=== PATIENT | female | born 1960 | race Caucasian/White ===

== ENCOUNTER → 2021-02-18 | Outpatient (CLI) | payer OTHER ==
[2021-02-18 12:03] VITALS: BP 107/74; PULSE 72; RESP 16; TEMP 98
--- NOTE | 2021-02-18 12:42 | P.GSHP ---
History of Present Illness H&P Date: 02/18/21 Chief Complaint: right breast cancer Alicia is a 60 year old white had a routine screening mammogram performed on 01-20-21 this was felt to be incomplete as there was some architectural distortion in the upper outer quadrant of the right breast and an ultrasound was recommended. The ultrasound was performed on 1020 821 which revealed a 2.1 x 1.6 cm nodule felt to be most likely fibroadenoma in the right breast. Ultrasound-guided core biopsy was recommended[place] [address] pathology results revealed invasive ductal carcinoma. It is felt to be low grade, ER positive, [place] negative, HER-2/genoveva pending. The patient did not feel the lesion prior to the mammogram. She gets mammograms on a yearly basis. This was a change. The patient is not complaining of any loss masses or nodules in either breast. She is not complaining of any nipple discharge or skin changes. She is does not report any recent trauma or infection in the breast. Caffeine: 2 cups/day nicotine: none chocolate: occasional hormones: none BCP: stopped 25 years ago, she took them for 15 years Family History: father: colon brother: pancreatic cancer; at 52 Hormonal History: menarche: 17 , breast fed: yes, age at first : 27 menopause: 58 BCP: 15 years stopped 25 years ago hormones: none Surgical history: right wrist surgery form trauma bilateral cataract surgery C-sections times two Medical history: none Social History: HEENT: Negative Alcohol: Occasional Drugs: Negative - Constitutional Constitutional: Reports sweats - EENT Eyes: bilateral as per HPI Ears: deny: decreased hearing, tinnitus Ears, nose, mouth and throat: Denies headache, Denies sore throat - Breasts Breasts: bilateral: as per HPI - Cardiovascular Cardiovascular: Denies chest pain, Denies shortness of breath - Respiratory Respiratory: Denies cough, Denies 7 - Gastrointestinal Gastrointestinal: Denies abdominal pain, Denies diarrhea, Denies nausea, Denies vomiting - Genitourinary (Female) Genitourinary: Denies dysuria, Denies hematuria - Menstruation Menstruation: Reports postmenopausal - Musculoskeletal Musculoskeletal: Denies myalgias - Integumentary Comment: eczema intermittent Integumentary: Denies pruritus, Denies rash - Neurological Neurological: Denies numbness, Denies weakness - Psychiatric Psychiatric: Denies anxiety, Denies depression - Endocrine Endocrine: Denies fatigue, Denies weight change - Hematologic/Lymphatic Comment: none - Allergic/Immunologic Allergic/Immunologic: Reports as per HPI Past Medical History Past Medical History: No Reported History History of Any Multi-Drug Resistant Organisms: None Reported Past Surgical History: Section, Orthopedic Surgery Additional Past Surgical History / Comment(s): right wrist surgery december 02, 2020 due to fall. bilateral cataract surgery. right breast biopsy 02/10/21- positive Past Anesthesia/Blood Transfusion Reactions: No Reported Reaction Past Psychological History: No Psychological Hx Reported Smoking Status: Former smoker Medications and Allergies Home Medications Medication Instructions Recorded Confirmed Type No Known Home Medications 02/18/21 02/18/21 History Allergies Allergy/AdvReac Type Severity Reaction Status Date / Time No Known Allergies Allergy Verified 02/18/21 11:53 Surgical - Exam Vital Signs Temp Pulse Resp BP 98.0 F 72 16 107/74 02/18/21 11:53 02/18/21 11:53 02/18/21 11:53 02/18/21 11:53 BMI 25.1 - General well developed, well nourished, no distress - Eyes normal ocular movement - ENT no hearing loss - Neck trachea midline - Respiratory normal respiratory effort - Cardiovascular Rhythm: regular Heart Sounds: normal: S1, S2 - Abdomen Abdomen: soft - Integumentary normal turgor - Neurologic no disoriented, no combative - Musculoskeletal normal gait, normal posture - Psychiatric oriented to time, oriented to person, oriented to place, speech is normal, memory intact Breast Exam: BRA: 36C Inspection: Grade 3 ptosis bilaterally Palpation: Right breast: Multi-positional exam increased nodularity near the periareolar area extending to the upper outer quadrant approximately 2 cm in size, no other dominant masses or nodules of concern Right axilla: No adenopathy of concern left breast: Multi-positional exam fibrocystic changes no dominant masses or nodules of concern Left axilla: No adenopathy of concern Results Mammogram and ultrasound were reviewed in detail with Dr. Ivory, there is approximately a 2-2.5 cm nodular area with spiculation in the right breast in the upper outer quadrant region adjacent to this more superficial is a mass which is most likely a fibroadenoma. The breast are dense bilaterally Assessment and Plan Assessment: Impression: 1. Invasive ductal carcinoma right breast upper outer quadrant 2. Second nodular area right breast in proximity to the malignancy which may represent a fibroadenoma 3. Dense breast 4. Positive family history/brother of pancreatic cancer Plan: 1. Right breast invasive ductal carcinoma 2. Presentation of case at tumor board 3. Genetic testing 4. Consider breast MRI 5. Consider biopsy second nodule and right breast Cc: Dr. Thompson
== END | disposition home or self-care (01) ==
LOC: WWCWWP 11:27
PROVIDERS: ATTEND Surgery
DX: Z53.9 Procedure and treatment not carried out, unspecified reason (principal)

== ENCOUNTER → 2021-03-09 | Day surgery (SDC) | payer OTHER ==
[2021-03-09 09:59] VITALS: RESP 16; TEMP 97.9
[2021-03-09 10:56] VITALS: BP 124/74; PULSE 54
--- NOTE | 2021-03-09 11:17 | USB ---
EXAMINATION TYPE: US biopsy breast VAD RT DATE OF EXAM: 03/09/2021 CLINICAL HISTORY: Z85.3, Personal history of breast cancer. TECHNIQUE: Ultrasound guided vaccuum assisted core biopsy of right breast. COMPARISON: NONE FINDINGS: The ultrasound guided core biopsy procedure was explained to the patient. The risks, benefits, alternatives were discussed. An informed consent was then obtained. Timeout was performed. The patient was placed in supine positioning for imaging and for the procedure. The overlying skin was prepped with betadine and sterilely draped in usual sterile fashion. Lidocaine 1% was used as anesthetic into the skin and deeper breast tissue up to area of concern in the breast. A small skin pritesh was made with surgical scalpel. Under ultrasound guidance, a 12-gauge vacuum assisted biopsy device was used to obtain 4 core samples. A biopsy clip was left in lesion. Wing clip was utilized. Good hemostasis was obtained with direct pressure. Discharge instructions were discussed with the patient. The patient will follow up with the referring physician for results. Postprocedure mammogram: No postprocedure mammogram was performed. This circumscribed lesion is directly above the patient's known cancer remaining present following the biopsy. The patient tolerated the procedure well without any immediate complication. The patient was discharged to home in stable condition. IMPRESSION: 1. Successful ultrasound guided biopsy right breast. Recommendations: 1. Recommendations are pending pathology results. Pathology Results: Benign RIGHT BREAST, NINE O'CLOCK, ULTRASOUND GUIDED CORE BIOPSY: Breast tissue with fibrosis/scar, negative for malignancy. Recommendation Follow up mammogram of the right breast in 6 months. JOELLE
== END ==
LOC: RADUSWWP 09:47
PROVIDERS: ATTEND Surgery
DX: N60.31 Fibrosclerosis of right breast (principal)
CPT/HCPCS: 88305; 19083; A4648; J2001

== ENCOUNTER → 2021-03-18 | Outpatient (CLI) | payer OTHER ==
[2021-03-18 15:29] VITALS: BP 122/64; PULSE 65; RESP 18; TEMP 98
--- NOTE | 2021-03-18 15:37 | P.PN ---
Subjective Progress Note Date: 03/18/21 Principal diagnosis: invasive ductal cancer right breast Original Note: History of Present Illness H&P Date: 02/18/21 Chief Complaint: right breast cancer Alicia is a 60 year old white had a routine screening mammogram performed on 01-20-21 this was felt to be incomplete as there was some architectural distortion in the upper outer quadrant of the right breast and an ultrasound was recommended. The ultrasound was performed on 1020 821 which revealed a 2.1 x 1.6 cm nodule felt to be most likely fibroadenoma in the right breast. Ultrasound-guided core biopsy was recommended[place] [id number] pathology results revealed invasive ductal carcinoma. It is felt to be low grade, ER positive, [place] negative, HER-2/genoveva pending. The patient did not feel the lesion prior to the mammogram. She gets mammograms on a yearly basis. This was a change. The patient is not complaining of any loss masses or nodules in either breast. She is not complaining of any nipple discharge or skin changes. She is does not report any recent trauma or infection in the breast. Genetic testing was performed and was negative Case was presented at tumor board inferiorly was the patient was a good candidate to proceed with surgery MRI was performed MRI there was some concern that the extent of the lesion was greater than initially thought up to 5-6 cm in size Oncotype 27 I discussed the case with Dr. Ervin from medical oncology, he states that despite the size of the tumor if the patient wishes to proceed with surgery first that that would be acceptable. I have discussed this with the patient and her and both wish to proceed with surgery prior to neoadjuvant chemotherapy. They understand that the tumor potentially could shrink and have better cosmetic results and despite this they wish to proceed with the surgery. Caffeine: 2 cups/day nicotine: none chocolate: occasional hormones: none BCP: stopped 25 years ago, she took them for 15 years Family History: father: colon brother: pancreatic cancer; at 52 Hormonal History: menarche: 17 , breast fed: yes, age at first : 27 menopause: 58 BCP: 15 years stopped 25 years ago hormones: none Surgical history: right wrist surgery form trauma bilateral cataract surgery C-sections times two Medical history: none Social History: HEENT: Negative Alcohol: Occasional Drugs: Negative - Constitutional Constitutional: Reports sweats - EENT Eyes: bilateral as per HPI Ears: deny: decreased hearing, tinnitus Ears, nose, mouth and throat: Denies headache, Denies sore throat - Breasts Breasts: bilateral: as per HPI - Cardiovascular Cardiovascular: Denies chest pain, Denies shortness of breath - Respiratory Respiratory: Denies cough - Gastrointestinal Gastrointestinal: Denies abdominal pain, Denies diarrhea, Denies nausea, Denies vomiting - Genitourinary (Female) Genitourinary: Denies dysuria, Denies hematuria - Menstruation Menstruation: Reports postmenopausal - Musculoskeletal Musculoskeletal: Denies myalgias - Integumentary Comment: eczema intermittent Integumentary: Denies pruritus, Denies rash - Neurological Neurological: Denies numbness, Denies weakness - Psychiatric Psychiatric: Denies anxiety, Denies depression - Endocrine Endocrine: Denies fatigue, Denies weight change - Hematologic/Lymphatic Comment: none - Allergic/Immunologic Allergic/Immunologic: Reports as per HPI Objective - Vital Signs Vital signs: Intake & Output 03/17/21 03/18/21 03/18/21 18:59 06:59 18:59 Weight 76.204 kg - Constitutional General appearance: Present: cooperative - EENT Eyes: Present: EOMI ENT: Present: hearing grossly normal - Neck Neck: Present: normal ROM - Respiratory Respiratory: bilateral: CTA - Cardiovascular Heart sounds: normal: S1, S2 - Integumentary Integumentary: Present: normal turgor - Musculoskeletal Musculoskeletal: Present: gait normal - Psychiatric Psychiatric: Present: A&O x's 3, appropriate affect, intact judgment & insight - Additional findings Additional findings: Breast Exam; BRA: 36C Inspection: Grade 3 ptosis bilaterally Palpation: Right breast: Multiple positional exam increased nodularity near the periareolar area extending to the upper outer quadrant approximately 3 cm in size, no other dominant masses or nodules of concern Right axilla: No adenopathy of concern Left breast: Multiple positional exam no dominant masses or nodules of concern Left axilla: No adenopathy of concern Assessment and Plan Assessment: Impression: 1. Invasive ductal carcinoma right breast upper outer quadrant on recent MRI this is approximately 6 cm in size 2. Second nodular area right breast in proximity to the malignancy was biopsied on and was benign fibrosis/scar negative for malignancy 3. I discussed the case with Dr. Ervin and he feels comfortable that the patient can proceed with surgery 4. I discussed this with the patient and her have given them the option of neoadjuvant chemotherapy as her Oncotype is 27 however the bronchus tumor to be removed, both discussed with them mastectomy versus a lumpectomy although they know the breast will be deformed and she wishes to have the lumpectomy attempted Plan: 1. Right breast needle localization lumpectomy, possible [id number] tissue transfer, possible mastopexy incision, sentinel node biopsy, sentinel node injection, possible axillary node dissection Risks and benefits of the procedure discussed with the patient and her . Risks include but are not limited to bleeding, infection, reaction to the anesthetic. With the axillary node sampling risk of lymphedema or decreased sensation to the upper arm was discussed as well as injury to the thoracodorsal and long thoracic nerves. They understand and wish to proceed. They also understand that neoadjuvant chemotherapy could shrink the tumor and give better cosmetic result however at this time they wish the tumor to be removed. CC: Dr. Thompson
== END | disposition home or self-care (01) ==
LOC: WWCWWP 14:31
PROVIDERS: ATTEND Surgery
DX: Z53.9 Procedure and treatment not carried out, unspecified reason (principal)

== ENCOUNTER 2021-03-22 07:49 | Observation (INO) | payer OTHER ==
[2021-03-17 14:56] VITALS: BMI 25.5
[~2021-03-22 07:49] MED LIST: DEXAMETHASONE SOD PHOSPHATE 4 MG/ML 1 ML VIAL IV ONE; HEPARIN SODIUM,PORCINE/PF 5,000 UNIT/0.5 ML SYRINGE SQ PRN; HYDROmorphone 0.5 MG/0.5 ML SYRINGE IVP PRN; ONDANSETRON 4 MG/2 ML VIAL IVP ONE; Pre Op ABX Message 1 EACH MISC MISCELLANE ONE
[2021-03-22] MEDS: LACTATED RINGERS 1,000 ML IV SCH ×2 (08:24→20:00)
[2021-03-22] MEDS ORDERED: LIDOCAINE 1% INJ 10MG/ML (20 ML MDV) SQ ONE ×3 (09:20→11:12)
--- NOTE | 2021-03-22 10:15 | NM ---
EXAMINATION TYPE: NM sentinel node injection DATE OF EXAM: 03/22/2021 COMPARISON: 01/20/2021 HISTORY: 60-year-old female biopsy-proven right breast cancer. TECHNIQUE AND FINDINGS: The procedure of sentinel lymph node injection was explained to the patient. The benefits, alternatives, and risks were discussed. An informed consent was then obtained. Overlying skin is cleaned with sterile alcohol. Following this, 493 uCi Tc99m Tilmanocept was inject ed in the upper outer aspect of the right nipple intradermally. The patient tolerated the procedure well without any immediate complication. The patient was kept in the radiology department for short stay after the procedure and then taken to surgery for surgical p rocedure what is presumed intraoperative gamma probe will be used for sentinel lymph node detection. IMPRESSION: Right breast radiotracer injection for sentinel node localization as above.
[2021-03-22] MEDS ORDERED: PROPOFOL 10 MG/ML 20 ML VIAL IV ONE (10:34)
[2021-03-22] MEDS ORDERED: KETAMINE 10 MG/ML 20 ML VIAL ONE (10:34)
[2021-03-22] MEDS ORDERED: ePHEDrine 50 MG/ML 1 ML AMP ONE (10:34)
[2021-03-22] MEDS ORDERED: fentaNYL (PF) 50 MCG/ML 2 ML AMP ONE (10:34)
[2021-03-22] MEDS ORDERED: MIDAZOLAM 2 MG/2 ML VIAL ONE (10:34)
[2021-03-22] MEDS ORDERED: SUCCINYLCHOLINE CHLORIDE 100 MG/5 ML SYR IV ONE (10:34)
[2021-03-22] MEDS ORDERED: LIDOCAINE 1% INJ 10MG/ML (20 ML MDV) ONE (10:34)
[2021-03-22] MEDS ORDERED: PHENYLEPHRINE-0.9% NACL SYG 1,000 MCG/10 ML SYRINGE ONE (10:34)
[2021-03-22] MEDS ORDERED: SODIUM CHLORIDE 0.9% 100 ML with ceFAZolin 2,000 MG IV ONE ×2 (10:55)
[2021-03-22] MEDS ORDERED: LACTATED RINGERS 1,000 ML IV ONE ×3 (12:12→15:59)
--- NOTE | 2021-03-22 13:59 | P.OP ---
Date of Procedure: 03/22/21 Preoperative Diagnosis: Right breast invasive ductal carcinoma Postoperative Diagnosis: same Procedure(s) Performed: right sentinel node biopsy, axillary node dissection, right breast needle localization lumpectomy, donut mastopexy, bronchoplasty tissue transfer 32 cm Anesthesia: FRANCIEA Surgeon: Ce Villatoro Estimated Blood Loss (ml): 25 Pathology: other (Fentanyl, axillary node contents, breast tissue) Condition: stable Disposition: same day Indications for Procedure: Invasive ductal carcinoma right breast Operative Findings: Dense fibroglandular tissue/suspicious axillary lymph nodes Description of Procedure: Alicia is a 60-year-old white female diagnosed with right breast invasive ductal carcinoma. The lesion was T3 N0 M0 ER positive MN low positive HER-2 negative. The case was discussed with Dr. Ervin and although the lesion was felt to be at least 6 cm in size the patient wished for surgery prior to any guerrero-adjuvant treatment. Dr. Ervin was aware and in agreement. The patient was given the option of an attempt at lumpectomy versus mastectomy and she wished to have an attempt at lumpectomy realizing that if margins are positive most likely proceed to a mastectomy. The patient was first seen in the radiology suite for injection of radioactive substance around the nipple areolar complex was performed as well as needle localization. She is brought to the preoperative area for the skin was marked. Markings were placed for a donut mastopexy incision. The patient was brought to the operating room and following induction of anesthesia. This area was interrogated using the neoprobe. Radioactivity was noted to be present in the axilla. The right breast and axilla were prepped and draped in a sterile fashion. The axilla was approached initially. An incision was made over the area of greatest radioactivity and dissection was performed down and a lymph node was recovered. A 10 second count on the lymph node was 6568. Palpation revealed several other suspicious nodes and a second node was removed and the 10 second count was 1102. A third lymph node was removed and the 10 second count was approximately 900. And a fourth lymph node was removed and the 10 second count was 805. Following this the background count was minimal. Secondary to the firmness of the lymph nodes. The axillary contents were somewhat suspicious and a completion dissection was performed. The tissues were followed from medial superiorly to the level of the axillary vein. Tissues were then swept inferiorly being careful to identify and preserve the thoracodorsal and long thoracic nerves. Several intercostal brachial vessels were ligated and divided using the LigaSure. Following thisfurther palpable adenopathy of concern was identified. The wound was well irrigated. A ONDINA drain was placed. The deep tissues were closed using 3-0 Vicryl suture. The skin was closed using a Vicryl suture followed by 4-0 Monocryl. The area of the breast was then approached. Markings had been placed in the pre-operative area for a donut mastopexy. The skin was de-epithelialized. The breast parenchyma was entered in the lateral aspect of the incision. This was dissected to the subcutaneous plane between the cutaneous tissue and breast tissue to the area of the marking wire. Dissection was performed well beyond the area of palpable tumor both inferiorly and laterally. Dissection was also performed superiorly and medially. Dissection was performed down to the pectoralis muscle. The specimen was removed. Following removal of the specimen it was painted for orientation. The specimen was sent to x-ray and it was concerning that the inferior medial margin may be positive. Therefore additional tissue was obtained. Additional tissue was obtained superiorly, inferiorly, medially and laterally and painted for orientation. No other palpable adenopathy was noted. The wound was well irrigated. Superior and inferior pillars of tissue were then mobilized. The pillars were both approximately 8 cm x 2 cm for a total of 32 cm. This tissue was brought together using 3-0 Vicryl suture. A ONDINA drain was placed. The circumareolar incision was closed using 2-0 subcutaneous suture. This was followed by 4-0 Monocryl suture suture. This was followed by a nylon suture. The patient tolerated the procedure in stable condition. All instrument and sponge counts were correct at the end of the case.
--- NOTE | 2021-03-22 14:03 | P.DS ---
Providers Attending physician: Ce Villatoro Primary care physician: Darren Thompson Plan - Discharge Summary Discharge Rx Participant: Yes New Discharge Prescriptions: No Action No Known Home Medications Discharge Medication List No Known Home Medications 02/18/21 [History] Follow up Appointment(s)/Referral(s): Ce Villatoro MD [STAFF PHYSICIAN] - 1-2 Days Activity/Diet/Wound Care/Special Instructions: do not drive today or if taking narcotic pain medication teach drain care; drain and record Q shift and as needed wear bra at at all times may shower after 48 hours Discharge Disposition: HOME SELF-CARE
[2021-03-22] MEDS ORDERED: MELATONIN 3 MG TABLET PO PRN (14:26)
[2021-03-22] MEDS ORDERED: NALOXONE 0.4 MG/ML 1 ML VIAL IV PRN (14:26)
[2021-03-22] MEDS ORDERED: ONDANSETRON 4 MG/2 ML VIAL IVP PRN (14:26)
--- NOTE | 2021-03-22 14:35 | P.PN ---
Progress Note - Text Progress Note Date: 03/22/21 The patient is doing well post-operative, however, there was extensive tissue dissection and the patient lives about 1 hour away. After discussion with the patient and her she has agreed to stay for 24 hour surveillance. She has two drains in place output is serous and minimal at this time. We will keep her for pain control and close surveillance.
[2021-03-22] MEDS ORDERED: ONDANSETRON 4 MG/2 ML VIAL IVP ONE ×2 (14:55→15:00)
[2021-03-22] MEDS: HEPARIN SODIUM,PORCINE/PF 5,000 UNIT/0.5 ML SYRINGE SQ SCH (17:37)
[2021-03-22] MEDS: traMADol 50 MG TAB PO PRN (19:31)
--- NOTE | 2021-03-22 19:32 | MM ---
EXAMINATION TYPE: MG pre op needle loc RT, MG surgical specimen RT DATE OF EXAM: 03/22/2021 COMPARISON: 02/10/2021 CLINICAL HISTORY: 60-year-old female referred for needle localization and excision of biopsy-proven right breast cancer. TECHNIQUE: Needle localization with wire placement and surgical excision of area of concern in the 10:00 right breast. FINDINGS: The procedure of needle localization with wire placement and than surgical excision was explained to the patient. Benefits, alternatives, and risks were discussed. An informed consent was then obtained. The shortest pathway for procedure was chosen. Shortest pathway was a lateral approach. The overlying skin was prepped and draped in usual sterile fashion. Lidocaine was used as anesthetic into the skin and subcutaneous tissue up to the level of area of concern. A 7 cm Kopan's needle was used. It was placed via a lateral approach under mammographic guidance. Subsequent 90 degrees mammogram show the needle to be in satisfactory position relative to the targeted area. At this point, wire was placed and the needle was withdrawn. The wire was fixed to patient's skin. Images were marked for surgeon. The patient tolerated the procedure well without any immediate complication. The patient was kept in the radiology department for short stay after the procedure and then taken to surgery for surgical excision. Both microclips, associated abnormal density, and wire are identified in specimen mammogram. The patient was kept in hospital for short stay after the procedure and then discharged home in stable condition. IMPRESSION: Successful, uncomplicated needle localization with wire placement and surgical excision of biopsy-proven 10:00 right breast cancer. Full pathology results to follow. Pathology Results: Malignant A. SENTINEL NODE #1, EXCISION: One designated sentinel lymph node positive for metastatic mammary carcinoma with focal extranodal extension. CK7 on block A1 with stainable controls negative. ARIA staining with appropriate controls on block A1 positive within metastatic carcinoma cells. B. SENTINEL NODE #2, EXCISION: One designated sentinel lymph node negative for metastatic carcinoma. CK7 and ARIA stains with stainable controls on block B1 each negative for metastatic carcinoma cells. C. AXILLARY TISSUE, EXCISION: One of two axillary lymph nodes positive for metastatic mammary carcinoma with extranodal extension. D. SENTINEL NODE #3, EXCISION: Five designated sentinel lymph nodes negative for metastatic carcinoma. CK7 and ARIA stains with stainable controls on block D1 each negative for metastatic carcinoma cells. E. SENTINEL NODE #4, EXCISION: One designated sentinel lymph node positive for metastatic carcinoma. CK7 on block E1 with stainable controls negative. ARIA staining with appropriate controls on block E1 positive within metastatic carcinoma cells. F. SENTINEL NODE #5, EXCISION: Two designated sentinel lymph nodes negative for metastatic carcinoma. CK7 and ARIA stains with stainable controls on block F1 each negative for metastatic carcinoma cells. G. RIGHT BREAST, LUMPECTOMY: Invasive ductal carcinoma, Grade 2, with involvement of adjacent sclerotic fibroadenoma (see Surgical Pathology Cancer Case Summary and Comment). Focal high grade DCIS with focal necrosis. Margin status in relation to invasive carcinoma: Posterior margin positive for invasive carcinoma focally. All other margins negative for invasive carcinoma. Margin status in relation to DCIS: All margins negative for DCIS. Closest DCIS to margin measures 1 mm from posterior margin. H. BREAST TISSUE, NEW SUPERIOR MARGIN, EXCISION: Benign breast tissue with new superior margin negative for carcinoma. I. BREAST, NEW LATERAL MARGIN, EXCISION: Benign breast tissue with new lateral margin negative for carcinoma. J. BREAST, NEW INFERIOR MARGIN, EXCISION: 1 mm and 2 mm foci of invasive ductal carcinoma, each present within area of neurovascular bundles (see comment at end of cancer protocol). New inferior margin negative for invasive carcinoma. 1 mm focus of invasive carcinoma within area of neurovascular bundle present 2 mm from closest new inferior margin. 2 mm focus of invasive carcinoma within area of neurovascular bundle present 3 mm from new inferior margin. K. BREAST, NEW MEDIAL MARGIN, EXCISION: Benign breast tissue with new medial margin negative for carcinoma. Recommendation Surgical consult of the right breast. THOMD
[2021-03-22] MEDS: DEXTROSE 5%-0.45% NACL 1,000 ML IV SCH (19:33)
[2021-03-22] MEDS: HYDROmorphone 1 MG/ML 1 ML SYRINGE IVP PRN (23:20)
[2021-03-23] MEDS: HEPARIN SODIUM,PORCINE/PF 5,000 UNIT/0.5 ML SYRINGE SQ SCH ×2 (00:38→09:11)
[2021-03-23] MEDS: DEXTROSE 5%-0.45% NACL 1,000 ML IV SCH ×2 (01:52→14:54)
[2021-03-23] MEDS: HYDROmorphone 1 MG/ML 1 ML SYRINGE IVP PRN (03:50)
[2021-03-23 07:36] VITALS: RESP 18; TEMP 97.5
[2021-03-23] MEDS ORDERED: METOCLOPRAMIDE 5 MG/ML 2 ML VIAL IVP PRN (08:49)
[2021-03-23 09:38] LABS: Basophils # (A) 0.03 X 10*3/uL (0.00-0.10); Basophils % (A) 0.4 %; Eosinophils # (A) 0.03 X 10*3/uL (0.04-0.35); Eosinophils % (A) 0.4 %; HCT 38.7 % (37.2-46.3); HGB 11.4 g/dL (12.0-15.0); Lymphocytes # (A) 2.51 X 10*3/uL (0.90-5.00); Lymphocytes % (A) 30.1 %; MCH 28.8 pg (27.0-32.0); MCHC 29.5 g/dL (32.0-37.0); MCV 97.7 fL (80.0-97.0); Mean Platelet Volume 11.4 fL (9.5-12.2); Monocytes # (A) 0.67 X 10*3/uL (0.20-1.00); Neutrophils # (A) 5.09 X 10*3/uL (1.80-7.70); Neutrophils % (A) 60.9 %; Platelet Count 241 X 10*3/uL (140-440); RBC 3.96 X 10*6/uL (4.10-5.20); RDW 12.5 % (11.5-14.5); WBC 8.35 X 10*3/uL (4.50-10.00)
[2021-03-23] MEDS: traMADol 50 MG TAB PO PRN (11:47)
--- NOTE | 2021-03-23 13:15 | P.PN ---
Subjective Progress Note Date: 03/23/21 Principal diagnosis: Postop day #1 lumpectomy and axillary node dissection right breast Alicia is a 60-year-old white female postop day #1 right breast axillary node dissection and lumpectomy with onco-plastic tissue transfer via a mastopexy incision. She tolerated the procedure without difficulty. She has had some nausea postoperatively. Hemoglobin this morning 11.4, white blood cell count 8.35. Objective - Vital Signs Vital signs: Vital Signs Temp 97.5 F L 03/23/21 07:00 Pulse 63 03/23/21 07:00 Resp 18 03/23/21 07:00 BP 99/62 03/23/21 07:00 Pulse Ox 95 03/23/21 07:00 Intake & Output 03/22/21 03/23/21 03/23/21 18:59 06:59 18:59 Intake Total 2550 Output Total 25 220 Balance 2525 -220 Weight 76.2 kg Intake: IV 2550 Output: Drainage 20 Right AXILLA 20 Emesis 200 Estimated Blood Loss 25 Other: # Voids 2 - Constitutional General appearance: Present: cooperative - EENT Eyes: Present: EOMI ENT: Present: hearing grossly normal - Neck Neck: Present: normal ROM - Respiratory Respiratory: bilateral: CTA - Cardiovascular Heart sounds: normal: S1, S2 - Integumentary Integumentary Comment(s): Incisions clean and dry - Labs CBC & Chem 7: 03/23/21 05:48 Labs: Abnormal Lab Results - Last 24 Hours (Table) 03/23/21 Range/Units 05:48 RBC 3.96 L (4.10-5.20) X 10*6/uL Hgb 11.4 L (12.0-15.0) g/dL MCV 97.7 H (80.0-97.0) fL MCHC 29.5 L (32.0-37.0) g/dL Eosinophils # 0.03 L (0.04-0.35) X 10*3/uL Assessment and Plan Assessment: Impression: Patient postop day #1 right breast lumpectomy onco-plastic tissue transfer, mastopexy, and axillary node dissection Patient with some initial nausea which has improved post procedure. Plan: Patient given Reglan and Zofran/feeling better Probable discharge home later today if patient tolerates diet
--- NOTE | 2021-03-23 13:16 | P.DS ---
Providers Date of admission: 03/23/21 04:25 Attending physician: Ce Villatoro Primary care physician: Darren Thompson Plan - Discharge Summary Discharge Rx Participant: Yes New Discharge Prescriptions: No Action No Known Home Medications Discharge Medication List No Known Home Medications 02/18/21 [History] Follow up Appointment(s)/Referral(s): Ce Villatoro MD [STAFF PHYSICIAN] - 1-2 Days Activity/Diet/Wound Care/Special Instructions: do not drive today or if taking narcotic pain medication teach drain care; drain and record Q shift and as needed wear bra at at all times may shower after 48 hours Patient patient tolerating diet Discharge Disposition: HOME SELF-CARE
[2021-03-23 14:47] VITALS: BP 97/64; PULSE 61
== END 2021-03-23 15:10 | disposition home or self-care (01) ==
LOC: OR 07:49 → 6NMEDSUR 14:11 → OR 03-23 04:25
PROVIDERS: ADMIT Surgery; ATTEND Surgery
DX: C50.511 Malignant neoplasm of lower-outer quadrant of right female breast (principal); C77.3 Secondary and unspecified malignant neoplasm of axilla and upper limb lymph nodes; Z17.0 Estrogen receptor positive status [ER+]; R11.0 Nausea; Z20.822 Contact with and (suspected) exposure to COVID-19
CPT/HCPCS: 19316; 85025; 88342; 88307; 88341; 87635; 76098; 19281; 38792; G0378; C1819; A9520; J2250; J1100; J2765; J2405 ×2; J0690; J2001; J3010; J1170 ×3; J2370; J0330; J2704; J1790; J1644 ×2

== ENCOUNTER → 2021-03-25 | Outpatient (CLI) | payer OTHER ==
[2021-03-25 15:40] VITALS: BP 106/67; PULSE 84; RESP 16; TEMP 97.9
--- NOTE | 2021-03-25 16:34 | P.PN ---
Progress Note - Text Progress Note Date: 03/25/21 Alicia is postop day #3 right breast axillary node dissection and right breast lumpectomy with optical plastic tissue transfer via a donut mastopexy. She is doing well at this time. She has [address] both have minimal output and is serous in nature. Her incision is clean and dry her pain is well-controlled. She is tolerating diet. Examination: Incision: Clean and dry ONDINA drain A: which is axillary drain serous in nature approximately 10 mL per day ONDINA drain B: which is in the breast is serous in nature approximately 20-25 mL per day Plan: 1. Continue present therapy 2. Follow-up next week for probable drain removal 3. Awaiting pathology
== END | disposition home or self-care (01) ==
LOC: WWCWWP 15:15
PROVIDERS: ATTEND Surgery
DX: Z53.9 Procedure and treatment not carried out, unspecified reason (principal)

== ENCOUNTER → 2021-03-28 | Outpatient (CLI) | payer OTHER ==
[2021-03-28 11:29] VITALS: BP 127/78; PULSE 67; RESP 18; TEMP 98
--- NOTE | 2021-03-28 11:45 | P.PN ---
Progress Note - Text Progress Note Date: 03/28/21 Alicia is postop day #6 right breast axillary node dissection and right breast lumpectomy with onco- plastic tissue transfer via a donut mastopexy. She is doing well at this time. She has [address] both have minimal output and is serous in nature. Her incision is clean and dry her pain is well-controlled. She is tolerating diet. Pathology is pending. Examination: Incision: Clean and dry ONDINA drain A: approximately 10 cc/day ONDINA drain B: approximately 10 cc/day Plan: 1. Continue present therapy 2. drain removal 3. Awaiting pathology 4. remove sutures 5. follow up with medical oncology 6. follow up with radiation oncology 7. follow up in 3 weeks CC: Dr. Thompson
== END | disposition home or self-care (01) ==
LOC: WWCWWP 11:00
PROVIDERS: ATTEND Surgery
DX: Z53.9 Procedure and treatment not carried out, unspecified reason (principal)

== ENCOUNTER → 2021-04-15 | Outpatient (CLI) | payer BC ==
[2021-04-15 10:09] VITALS: BP 105/62; PULSE 62; RESP 16; TEMP 98.1
--- NOTE | 2021-04-15 10:30 | P.PN ---
Progress Note - Text Progress Note Date: 04/15/21 Alicia is postop 03/22/21 right breast axillary node dissection and right breast lumpectomy with onco- plastic tissue transfer via a donut mastopexy. She is doing well at this time. She has no complaints related to her surgery. Her incision is clean and dry her pain is well-controlled. She is tolerating diet. Pathology revealed a 1 mm focus of invasion at the posterior margin which was on the pectoralis muscle. All other margins are negative. Additionally she had 3 out of 12 lymph nodes positive. She was seen in consultation by medical oncology Dr. Ervin and she is going to have metastatic workup performed. Computed tomography scan is been ordered as well as a bone scan and an echo. The plan is to start chemotherapy within the next several weeks. Radiation therapy will be deferred until after the chemotherapy. The patient will follow up here in 4 months. Examination: Incision: Clean and dry Plan: 1. Continue present therapy 2. Follow-up here in 4 months 3. Follow-up medical oncology/metastatic workup 4. Follow-up radiation oncology CC: Dr. Thompson
== END | disposition home or self-care (01) ==
LOC: WWCWWP 09:54
PROVIDERS: ATTEND Surgery
DX: Z53.9 Procedure and treatment not carried out, unspecified reason (principal)

== ENCOUNTER → 2021-04-19 | Outpatient (CLI) | payer BC ==
--- NOTE | 2021-04-19 09:23 | CT ---
EXAMINATION TYPE: CT ChestAbdPelvis w con DATE OF EXAM: 04/19/2021 COMPARISON: None. HISTORY: recent diagnosis of breast CA (Rt) CT DLP: 1456 mGycm. Automated Exposure Control for Dose Reduction was Utilized. CONTRAST: CT scan of the thorax, abdomen and pelvis is performed with IV Contrast, patient injected with 100 mL of Isovue 300. FINDINGS: LUNGS: The lungs are grossly clear, there is no concerning parenchymal mass or nodule identified. T here is no pleural effusion or pneumothorax seen. The tracheobronchial tree is patent. MEDIASTINUM: There are no greater than 1 cm hilar or mediastinal lymph nodes. Small pericardial effus ion is seen anteriorly. There is four-vessel origin from aortic arch which is normal variant. No car diomegaly. OTHER: Surgical clips in the right breast including right axilla with air there is additional lateral scarring. There is 1.4 x 0.9 cm thin-walled fluid collection consistent with postsurgical seroma axi al image 22. Small seroma deep right breast on axial image 36 also noted. Mild asymmetric right breas t skin thickening presumed product of recent surgery. No suspicious axillary adenopathy bilaterally. LIVER/GB: There is 1.3 cm thin-walled cyst left hepatic dome axial image 47. PANCREAS: No significant abnormality is seen. SPLEEN: No significant abnormality is seen. ADRENALS: No significant abnormality is seen. KIDNEYS: Symmetric cortical medullary uptake and excretion without hydronephrosis seen bilaterally. BOWEL: Contrast about each level of terminal ileum making evaluation of distal bowel slightly subopti mal. Normal-appearing appendix is seen from the cecum in the right upper pelvis. Small bowel feces si gn in the distal ileum. Mild prominence of contrast filled small bowel loops without greater than 3.0 cm dilatation. Findings consistent with delayed passage of ingested material to colonic level. No mays spicious colonic dilatation. Mild to moderate diffuse colonic fecal prominence particularly in the ri ght, left, and transverse colon. GENITAL ORGANS: Anteverted uterus. Few scattered bilateral pelvic phleboliths. LYMPH NODES: No greater than 1cm abdominal or pelvic lymph nodes are appreciated. OSSEOUS STRUCTURES: Moderate disc space narrowing with vacuum disc phenomenon at L4-L5 level. Mild-to -moderate multilevel spurring and disc space narrowing in the mid to lower thoracic spine. There is S -shaped scoliosis. OTHER: No significant additional abnormality is seen. IMPRESSION: Postsurgical changes to the right breast identified. No suspicious mass or adenopathy to suggest metastatic disease.
== END | disposition home or self-care (01) ==
LOC: RADCTMAIN 06:54
PROVIDERS: ATTEND Internal Medicine Hematology & Oncology
DX: Z03.89 Encounter for observation for other suspected diseases and conditions ruled out (principal); C50.511 Malignant neoplasm of lower-outer quadrant of right female breast
CPT/HCPCS: 71260; 74177; Q9967; Z0389

== ENCOUNTER 2021-10-21 08:21 | Day surgery (SDC) | payer BC, OTHER ==
[2021-10-19 11:16] VITALS: BMI 26.9
[~2021-10-21 08:21] MED LIST changes: +ACETAMINOPHEN TAB 500 MG TAB PO PRN; +MIDAZOLAM 2 MG/2 ML VIAL IV PRN; -Pre Op ABX Message 1 EACH MISC MISCELLANE ONE; +SCOPOLAMINE 1 MG/72 HR PATCH TRANSDERM ONE
[2021-10-21 08:45] VITALS: TEMP 98.4
[2021-10-21] MEDS: LACTATED RINGERS 1,000 ML IV SCH ×2 (09:02→12:34)
--- NOTE | 2021-10-21 12:08 | P.GSHP ---
History of Present Illness H&P Date: 10/21/21 Chief Complaint: Breast cancer 61-year-old female with history of right breast cancer. Underwent Port-A-Cath placement earlier this year for adjuvant chemotherapy. Patient did well with her chemotherapy. Port worked well for her. She is ready to have her port removed. - Review of Systems Comment: Chest: Port incision clean and dry Abdomen: Soft, nontender, nondistended Past Medical History Past Medical History: Cancer Additional Past Medical History / Comment(s): RT BREAST CANCER-DX 02/2021 History of Any Multi-Drug Resistant Organisms: None Reported Past Surgical History: Section, Orthopedic Surgery, Uterine Ablation Additional Past Surgical History / Comment(s): right wrist surgery december 02, 2020 due to fall, PORT A CATHETER. bilateral cataract surgery. right breast biopsy 02/10/21-positive. right breast lumpectomy 03/22/21 Past Anesthesia/Blood Transfusion Reactions: Postoperative Nausea & Vomiting (PONV) Smoking Status: Former smoker - Past Family History Father Family Medical History: Cancer Additional Family Medical History / Comment(s): COLON. paternal aunt- breast CA Brother(s) Family Medical History: Cancer Additional Family Medical History / Comment(s): PANCREATIC, hodgkins lymphoma, thyroid cancer Medications and Allergies Home Medications Medication Instructions Recorded Confirmed Type Calcium Carbonate/Vitamin D3 1 each PO DAILY 10/19/21 10/21/21 History [Calcium 600 mg-D3 10 Mcg (400 Iu)] Multivitamin [Multivitamins Adult 1 each PO DAILY 10/19/21 10/21/21 History Gummies] flaxseed oiL [Decherd-3 Flaxseed Oil] 1,000 mg PO DAILY 10/19/21 10/21/21 History Allergies Allergy/AdvReac Type Severity Reaction Status Date / Time No Known Allergies Allergy Verified 10/21/21 08:38 Surgical - Exam Vital Signs Temp Pulse Resp BP Pulse Ox 98.4 F 64 16 104/63 100 10/21/21 08:43 10/21/21 08:43 10/21/21 08:43 10/21/21 08:43 10/21/21 08:43 Assessment and Plan (1) Breast cancer, right Narrative/Plan: Will proceed with Port-A-Cath removal at this time. Risks of bleeding, infection, scarring reviewed. She understands and wishes to proceed. Current Visit: Yes Status: Acute Code(s): C50.911 - MALIGNANT NEOPLASM OF UNSP SITE OF RIGHT FEMALE BREAST SNOMED Code(s): 609906503
[2021-10-21] MEDS ORDERED: fentaNYL (PF) 50 MCG/ML 2 ML AMP ONE (12:32)
[2021-10-21] MEDS ORDERED: PROPOFOL 10 MG/ML 20 ML VIAL IV ONE (12:32)
[2021-10-21] MEDS ORDERED: LIDOCAINE 1% INJ 10MG/ML (20 ML MDV) SQ ONE ×3 (12:32→13:00)
[2021-10-21] MEDS ORDERED: ePHEDrine 50 MG/ML 1 ML VIAL ONE (12:32)
[2021-10-21] MEDS ORDERED: MIDAZOLAM 2 MG/2 ML VIAL ONE (12:32)
[2021-10-21] MEDS ORDERED: NALOXONE 0.4 MG/ML 1 ML VIAL IV PRN (13:17)
--- NOTE | 2021-10-21 13:17 | P.OP ---
Date of Procedure: 10/21/21 Procedure(s) Performed: PREOPERATIVE DIAGNOSIS: Right breast cancer POSTOPERATIVE DIAGNOSIS: Same PROCEDURE: Port-A-Cath removal SURGEON: Venus EBL: Minimal ANESTHESIA: Sedation COMPLICATIONS: None OPERATIVE PROCEDURE: Patient was placed in the supine position. The patient was sedated per anesthesia that time. The chest was prepped and draped in the usual sterile fashion. The skin was localized with Marcaine solution. The previous incision was re-incised using a scalpel. The port was easily excised using accommodation of blunt dissection sharp dissection and electrocautery. The subcutaneous tissues were reapproximated using 3-0 Vicryl sutures. The skin was reapproximated using 4-0 Monocryl sutures. Skin glue was then applied. DISPOSITION: Stable to recovery room
[2021-10-21 13:56] VITALS: BP 100/68; PULSE 70; RESP 18
== END 2021-10-21 14:00 | disposition home or self-care (01) ==
LOC: OR 08:21
PROVIDERS: ATTEND Surgery
DX: C50.911 Malignant neoplasm of unspecified site of right female breast (principal); Z92.21 Personal history of antineoplastic chemotherapy; Z98.891 History of uterine scar from previous surgery; Z98.42 Cataract extraction status, left eye; Z98.41 Cataract extraction status, right eye; Z98.890 Other specified postprocedural states; Z87.891 Personal history of nicotine dependence; Z80.0 Family history of malignant neoplasm of digestive organs; Z80.7 Family history of other malignant neoplasms of lymphoid, hematopoietic and related tissues; Z80.8 Family history of malignant neoplasm of other organs or systems
CPT/HCPCS: 36590; J2250; J1100; J2405; J2001; J3010; J2704; J1644

== ENCOUNTER → 2021-12-30 | Outpatient (CLI) | payer BC, OTHER ==
[2021-12-30 15:06] VITALS: PULSE 65; RESP 13; TEMP 98.6
--- NOTE | 2021-12-30 15:44 | P.PN ---
Subjective Progress Note Date: 12/30/21 Principal diagnosis: Stage IIB invasive ductal carcinoma right breast T2 pN1a M0 G2 ER positive CT negative HER-2 negative Alicia is a 60 year old white had a routine screening mammogram performed on 01-20-21 this was felt to be incomplete as there was some architectural disto rtion in the upper outer quadrant of the right breast and an ultrasound was recommended. The ultrasound was performed on 1020 821 which revealed a 2.1 x 1.6 cm nodule felt to be most likely fibroadenoma in the right breast. Ultrasound-guided core biopsy was recommended. Core biopsy was performed on pathology results revealed invasive ductal carcinoma. It is felt to be low grade, ER positive, CT negative, HER-2/genoveva pending. The patient did not feel the lesion prior to the mammogram. She gets mammograms on a yearly basis. This was a change. The patient is not complaining of any loss masses or nodules in either breast. She is not complaining of any nipple discharge or skin changes. She is does not report any recent trauma or infection in the breast. Genetic testing was performed and was negative Case was presented at tumor board inferiorly was the patient was a good candidate to proceed with surgery MRI was performed MRI there was some concern that the extent of the lesion was greater than initially thought up to 5-6 cm in size Oncotype 27 I discussed the case with Dr. Ervin from medical oncology, he states that despite the size of the tumor if the patient wishes to proceed with surgery first that that would be acceptable. I have discussed this with the patient and her and both wish to proceed with surgery prior to neoadjuvant chemotherapy. They understand that the tumor potentially could shrink and have better cosmetic results and despite this they wish to proceed with the surgery. 12-30-21 Alicia underwent a lumpectomy and sentinel node biopsy on [id number]. 3 of 12 lymph nodes were positive. Her posterior margin was felt to be positive for invasive carcinoma focally. All other margins were negative for invasive carcinoma. All margins were negative for DCIS. The lesion was on the pectoral muscle posteriorly so further excision was not recommended. The size of the tumor is 2.8 cm x 2.3 cm. She underwent a metastatic workup secondary to the positive lymph nodes which was negative. Alicia completed chemotherapy; She started adjuvant dose dense AC and completed 4 cycles on . On she started weekly Taxol she completed this on September 27, 2021 Alicia then underwent radiation therapy which he completed on November [id number] She is now taking Verzenio for two years, and the Letrazole for 10 years. Her last mammogram was on 01-20-21; this was the one in which the cancer was diagnosed. The patient has asymmetry of her breasts related to cancer treatment on the right breast. Makes it hard to find close to fit. It causes her some distress. Caffeine: 2 cups/day nicotine: none chocolate: occasional hormones: none BCP: stopped 25 years ago, she took them for 15 years Family History: father: colon brother: pancreatic cancer; at 52 Hormonal History: menarche: 17 , breast fed: yes, age at first : 27 menopause: 58 BCP: 15 years stopped 25 years ago hormones: none Surgical history: right wrist surgery form trauma bilateral cataract surgery C-sections times two right lumpectomy and axillary node resetion port placement and removal Medical history: none Social History: HEENT: Negative Alcohol: Occasional Drugs: Negative - Constitutional Constitutional: Reports sweats - EENT Eyes: bilateral as per HPI Ears: deny: decreased hearing, tinnitus Ears, nose, mouth and throat: Denies headache, Denies sore throat - Breasts Breasts: bilateral: as per HPI - Cardiovascular Cardiovascular: Denies chest pain, Denies shortness of breath - Respiratory Respiratory: Denies cough - Gastrointestinal Gastrointestinal: Denies abdominal pain, Denies diarrhea, Denies nausea, Denies vomiting - Genitourinary (Female) Genitourinary: Denies dysuria, Denies hematuria - Menstruation Menstruation: Reports postmenopausal - Musculoskeletal Musculoskeletal: Denies myalgias - Integumentary Comment: eczema intermittent Integumentary: Denies pruritus, Denies rash - Neurological Neurological: Denies numbness, Denies weakness - Psychiatric Psychiatric: Denies anxiety, Denies depression - Endocrine Endocrine: Denies fatigue, Denies weight change - Hematologic/Lymphatic Comment: none - Allergic/Immunologic Allergic/Immunologic: Reports as per HPI Objective - Vital Signs Vital signs: Vital Signs Temp 98.6 F 12/30/21 15:02 Pulse 65 12/30/21 15:02 Resp 13 12/30/21 15:02 BP Pulse Ox 100 12/30/21 15:02 FiO2 Intake & Output 12/29/21 12/30/21 12/30/21 18:59 06:59 18:59 Weight 76.204 kg - Constitutional General appearance: Present: cooperative - EENT Eyes: Present: EOMI ENT: Present: hearing grossly normal - Neck Neck: Present: normal ROM - Respiratory Respiratory: bilateral: CTA - Cardiovascular Rhythm: regular Heart sounds: normal: S1, S2 - Integumentary Integumentary: Present: normal turgor - Musculoskeletal Musculoskeletal: Present: gait normal - Psychiatric Psychiatric: Present: A&O x's 3, appropriate affect, intact judgment & insight - Additional findings Additional findings: Breast Exam: BRA: 36B Inspection: Asymmetry of the breast related to cancer surgery for the right breast, ptosis right 1/2 ptosis left 3 Palpation: Right breast: Multiple position her exam postsurgical and radiation changes no dominant masses or nodules of concern Right axilla: No adenopathy of concern Left breast multiposition exam fibrocystic changes no dominant masses or nodules of concern Left axilla: No adenopathy of concern Assessment and Plan Assessment: Impression: Stage II right breast cancer no evidence of recurrence patient status post surgery/chemotherapy/radiation therapy's last is presently on O Zoll in visit hernia Asymmetry of the breast related to cancer treatment right breast Plan: Bilateral mammogram due January 2023 Reduction mammoplasty of the left breast secondary to asymmetry related to cancer treatment of the right breast Cc: Dr. Thompson
== END | disposition home or self-care (01) ==
LOC: WWCWWP 14:37
PROVIDERS: ATTEND Surgery
DX: Z53.9 Procedure and treatment not carried out, unspecified reason (principal)

== ENCOUNTER → 2022-01-23 | Outpatient (CLI) | payer BC ==
--- NOTE | 2022-01-23 15:47 | MM ---
Reason for Exam: Additional evaluation requested from prior study. Last mammogram was performed 11 year(s) and 3 month(s) ago. Patient History: Menarche at age 15. First Full-Term at age 27. Postmenopausal. Breast cancer, right, age 60. Previous chest radiation therapy at age 60. Previous chemotherapy at age 60. 03/22/2021, Lumpectomy on the Right side. 03/22/2021, Malignant Core Biopsy on the right side. 03/09/2021, Benign Core Biopsy on the right side. 05/2021, Chemotherapy. 09/2021, Radiation Therapy on the right side. Paternal cousin had breast cancer at or over age 50. Paternal aunt had breast cancer. Prior Study Comparison: 01/30/2007 Screening Mammogram, [place]. 02/05/2008 Screening Mammogram, [place]. 05/14/2009 Bilateral Screening Mammogram, [facility]. 05/28/2009 Right Diagnostic Mammogram, [facility]. 11/03/2010 Bilateral Screening Mammogram, [facility]. 11/09/2010 Left Diagnostic Mammogram, [facility]. Tissue Density: The breast tissue is heterogeneously dense. This may lower the sensitivity of mammography. Findings: Analyzed By CAD. Postsurgical and posttreatment changes of the right breast. No new suspicious microcalcifications or masses in either breast. Stable chronic nodularity within the left breast. Overall Assessment: Benign, BI-RAD 2 Management: Diagnostic Mammogram of both breasts in 1 year. A clinical breast exam by your physician is recommended on an annual basis and results should be correlated with mammographic findings. This exam should not preclude additional follow-up of suspicious palpable abnormalities. Results were given to the patient verbally at the time of exam. Electronically signed and approved by: Alden Kemp D.O.
== END | disposition home or self-care (01) ==
LOC: RADMAMWWP 14:54
PROVIDERS: ATTEND Surgery
DX: Z85.3 Personal history of malignant neoplasm of breast (principal)
CPT/HCPCS: 77062; 77066

== ENCOUNTER → 2022-02-24 | Outpatient (CLI) | payer OTHER ==
[2022-02-24 12:10] VITALS: BP 94/59; PULSE 61; RESP 16; TEMP 97.8
--- NOTE | 2022-02-24 12:30 | P.PN ---
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 The ultrasound was performed on [id number] which revealed a 2.1 x 1.6 cm nodule felt to be most likely fibroadenoma in the right breast. Ultrasound-guided core biopsy was recommended. Core biopsy was performed on pathology results revealed invasive ductal carcinoma. It is felt to be low grade, ER positive, MI negative, HER-2/genoveva pending. The patient did not feel the lesion prior to the mammogram. She gets mammograms on a yearly basis. This was a change. The patient is not complaining of any loss masses or nodules in either breast. She is not complaining of any nipple discharge or skin changes. She is does not report any recent trauma or inf ection in the breast. Genetic testing was performed and was negative Case was presented at tumor board it was felt the patient was a good candidate to proceed with surgery MRI was performed MRI there was some concern that the extent of the lesion was greater than initially thought up to 5-6 cm in size Oncotype 27 I discussed the case with Dr. Ervin from medical oncology, he states that despite the size of the tumor if the patient wishes to proceed with surgery first that that would be acceptable. I have discussed this with the patient and her and both wish to proceed with surgery prior to neoadjuvant chemotherapy. They understand that the tumor potentially could shrink and have better cosmetic results and despite this they wish to proceed with the surgery. 12-30-21 Alicia underwent a lumpectomy and sentinel node biopsy on [id number]. 3 of 12 lymph nodes were positive. Her posterior margin was felt to be positive for invasive carcinoma focally. All other margins were negative for invasive carcinoma. All margins were negative for DCIS. The lesion was on the pectoral muscle posteriorly so further excision was not recommended. The size of the tumor is 2.8 cm x 2.3 cm. She underwent a metastatic workup secondary to the positive lymph nodes which was negative. Alicia completed chemotherapy; She started adjuvant dose dense AC and completed 4 cycles on . On she started weekly Taxol she completed this on September 27, 2021 Alicia then underwent radiation therapy which he completed on November [id number] She is now taking Verzenio for two years, and the Letrazole for 10 years. Bilateral mammogram on 01-23-22 BIRAD 2. The patient has asymmetry of her breasts related to cancer treatment on the right breast. Makes it hard to find close to fit. It causes her some distress. Caffeine: 2 cups/day nicotine: none chocolate: occasional hormones: none BCP: stopped 25 years ago, she took them for 15 years Family History: father: colon brother: pancreatic cancer; at 52 Hormonal History: menarche: 17 , breast fed: yes, age at first : 27 menopause: 58 BCP: 15 years stopped 25 years ago hormones: none Surgical history: right wrist surgery form trauma bilateral cataract surgery C-sections times two right lumpectomy and axillary node resetion port placement and removal Medical history: none Social History: HEENT: Negative Alcohol: Occasional Drugs: Negative - Constitutional Constitutional: Reports sweats - EENT Eyes: bilateral as per HPI Ears: deny: decreased hearing, tinnitus Ears, nose, mouth and throat: Denies headache, Denies sore throat - Breasts Breasts: bilateral: as per HPI - Cardiovascular Cardiovascular: Denies chest pain, Denies shortness of breath - Respiratory Respiratory: Denies cough - Gastrointestinal Gastrointestinal: Denies abdominal pain, Denies diarrhea, Denies nausea, Denies vomiting - Genitourinary (Female) Genitourinary: Denies dysuria, Denies hematuria - Menstruation Menstruation: Reports postmenopausal - Musculoskeletal Musculoskeletal: Denies myalgias - Integumentary Comment: eczema intermittent Integumentary: Denies pruritus, Denies rash - Neurological Neurological: Denies numbness, Denies weakness - Psychiatric Psychiatric: Denies anxiety, Denies depression - Endocrine Endocrine: Denies fatigue, Denies weight change - Hematologic/Lymphatic Comment: none - Allergic/Immunologic Allergic/Immunologic: Reports as per HPI Objective - Vital Signs Vital signs: Vital Signs Temp 97.8 F 02/24/22 12:08 Pulse 61 02/24/22 12:08 Resp 16 02/24/22 12:08 BP 94/59 02/24/22 12:08 Pulse Ox 99 02/24/22 12:08 FiO2 Intake & Output 02/23/22 02/24/22 02/24/22 18:59 06:59 18:59 Weight 74.843 kg - Constitutional General appearance: Present: cooperative - EENT Eyes: Present: EOMI ENT: Present: hearing grossly normal - Neck Neck: Present: normal ROM - Respiratory Respiratory: bilateral: CTA - Cardiovascular Rhythm: regular Heart sounds: normal: S1, S2 - Gastrointestinal General gastrointestinal: Present: soft - Integumentary Integumentary: Present: normal turgor - Musculoskeletal Musculoskeletal: Present: gait normal - Psychiatric Psychiatric: Present: A&O x's 3, appropriate affect, intact judgment & insight - Additional findings Additional findings: Breast Exam: BRA: 36B Inspection: Asymmetry of the breast related to cancer surgery for the right breast, ptosis right 1/2 ptosis left 3 Palpation: Right breast: Multiple position her exam postsurgical and radiation changes no dominant masses or nodules of concern Right axilla: No adenopathy of concern Left breast multiposition exam fibrocystic changes no dominant masses or nodules of concern Left axilla: No adenopathy of concern Assessment and Plan Assessment: Impression: Stage II right breast cancer no evidence of recurrence patient status post surgery/chemotherapy/radiation therapy's last is presently on letrazole Asymmetry of the breast related to cancer treatment right breast Plan: Bilateral mammogram due January 2023 Reduction mammoplasty of the left breast secondary to asymmetry related to cancer treatment of the right breast Clearance Dr. Thompson Skin benefits of the procedure discussed with the patient. Risks include but are not limited to bleeding, infection, reaction to the anesthetic. She understands and wishes to proceed. Additionally she could have some decreased sensation to the nipple areolar area with some slough of the skin. She understands again and wishes to proceed. Cc: Dr. Thompson
== END | disposition home or self-care (01) ==
LOC: WWCWWP 11:55
PROVIDERS: ATTEND Surgery
DX: Z53.9 Procedure and treatment not carried out, unspecified reason (principal)

== ENCOUNTER → 2022-04-10 | Outpatient (CLI) | payer BC, OTHER ==
--- NOTE | 2022-04-10 17:03 | BD ---
EXAMINATION TYPE: Axial Bone Density DATE OF EXAM: 04/10/2022 COMPARISON: NONE CLINICAL HISTORY: 61 years year old Female. ICD-10 CODE: C50.511 Breast ca Nuclear Medicine Study in the last 2 weeks: Barium Study in the last week: : Height: Weight: FRAX RISK QUESTIONS: Family History (Parent hip fracture): YES History of Fracture in Adulthood: YES RISK FACTORS HISTORY OF: HX OF RT WRIST FX AN ADULT History of Wrist Fracture: RT WRIST, 2021, Surgery to RT WRIST, 2021 Postmenopausal woman: YES, AT 59 YRS OLD Lost more than 2 inches in height since high school: YES Hyperparathyroidism: NO Adrenal Insufficiency: NO MEDICATIONS: Additional Medications: HX OF RT BREAST CANCER, LUMPECTOMY, HX OF CHEMO AND RADIATION, 2020, REFLUX M EDS, VIT D AND CALCIUM, LETROZOLE, BRUZINO, BREAST CANCER TREATMENT, Additional History: HX OF BREAST CANCER, RT SIDE, REFLUX, EXAM MEASUREMENTS: Bone mineral densitometry was performed using the [employer] System. Bone mineral density as measured about the Lumbar spine is: ----- L1-L4(G/cm2): 0.948 T Score Values are as follows: ----- L1: -1.9 ----- L2: -1.8 ----- L3: -2.4 ----- L4: -1.7 ----- L1-L4: -1.9 Bone mineral density FIRST DEXA STUDY......BASELINE Bone mineral density about the R hip (g/cm2): 0.785 Bone mineral density about the L hip (g/cm2): 0.775 T Score values are as follows: -----R Neck: -2.1 -----L Neck: -2.0 -----R Total: -1.8 -----L Total: -1.8 Bone mineral density BASELINE STUDY TODAY..... FRAX%s: The graph provided illustrates a 16.9%nce for a major osteoporotic fx and a 2.5%ance for the hips probability for fx in 10 years time. IMPRESSION: Osteopenia (T Score between -2.5 and -1). There is slightly increased risk of fracture and the patient may be considered for treatment. Re-Screen 2-5 years. NOTE: T-SCORE=SD OF THE YOUNG ADULT MEAN.
== END | disposition home or self-care (01) ==
LOC: RADBDWWP 12:30
PROVIDERS: ATTEND Internal Medicine Hematology & Oncology
DX: C50.511 Malignant neoplasm of lower-outer quadrant of right female breast (principal); M85.89 Other specified disorders of bone density and structure, multiple sites
CPT/HCPCS: 77080

== ENCOUNTER → 2023-01-25 | Outpatient (CLI) | payer BC ==
--- NOTE | 2023-01-25 14:40 | MM ---
Reason for Exam: Hx of breast cancer, conservation therapy. Last screening mammogram was performed 12 month(s) ago. Patient History: Menarche at age 15. First Full-Term at age 27. Postmenopausal. Breast cancer, right, age 60. Previous chest radiation therapy at age 60. Previous chemotherapy at age 60. 03/22/2021, Lumpectomy on the Right side. 03/22/2021, Malignant Core Biopsy on the right side. 03/09/2021, Benign Core Biopsy on the right side. 05/2021, Chemotherapy. 09/2021, Radiation Therapy on the right side. Paternal cousin had breast cancer at or over age 50. Paternal aunt had breast cancer. Prior Study Comparison: 05/28/2009 Right Diagnostic Mammogram, [facility]. 11/03/2010 Bilateral Screening Mammogram, [facility]. 11/09/2010 Left Diagnostic Mammogram, [facility]. 01/23/2022 Bilateral MG 3D diag mammo w/cad KARAN, [facility]. Tissue Density: The breast tissue is heterogeneously dense. This may lower the sensitivity of mammography. Findings: Analyzed By CAD. Postprocedural changes right breast with surgical clips. No new suspicious masses, calcifications or distortions. Overall Assessment: Benign, BI-RAD 2 Management: Screening Mammogram of both breasts in 1 year. Results were given to the patient verbally at the time of exam. Patient should continue monthly self-breast exams. A clinical breast exam by your physician is recommended on an annual basis. This exam should not preclude additional follow-up of suspicious palpable abnormalities. Note on Germaine scores and lifetime risk: 1. A Germaine score greater than 3% is considered moderate risk. If this is the case, consider specialist referral to assess eligibility for a risk reducing agent. 2. If overall lifetime risk for the development of breast cancer is 20% or higher, the patient may qualify for future screening with alternating mammogram and breast MRI. Electronically signed and approved by: Shane Plata DO
== END | disposition home or self-care (01) ==
LOC: RADMAMWWP 14:12
PROVIDERS: ATTEND Surgery
DX: R92.333 Mammographic heterogeneous density, bilateral breasts (principal); Z85.3 Personal history of malignant neoplasm of breast; Z80.3 Family history of malignant neoplasm of breast; Z78.0 Asymptomatic menopausal state
CPT/HCPCS: 77062; 77066

== ENCOUNTER → 2023-01-25 | Outpatient (CLI) | payer BC ==
[2023-01-25 15:50] VITALS: BP 108/64; PULSE 63; RESP 17; TEMP 97.8
--- NOTE | 2023-01-25 15:52 | P.PN ---
Subjective Progress Note Date: 01/25/23 Principal diagnosis: stage IIB left breast invasive ductal cancer 2020: [id number] Stage IIB invasive ductal cancer left breast T2 pN1a M0 G2 ER positive [place] negative HER-2 negative Alicia is a 60 year old white had a routine screening mammogram performed on 01-20-21 this was felt to be incomplete as there was some architectural distortion in the upper outer quadrant of the right breast and an ultrasound was recommended. The ultrasound was performed on [id number] which revealed a 2.1 x 1.6 cm nodule felt to be most likely fibroadenoma in the right breast. Ultrasound-guided core biopsy [place] [id number] pathology results revealed invasive ductal carcinoma. It is felt to be low grade, ER positive, AZ negative, HER-2/genoveva pending. The patient did not feel the lesion prior to the mammogram. She gets mammograms on a yearly basis. This was a change. The patient is not complaining of any loss masses or nodules in either breast. She is not complaining of any nipple discharge or skin changes. She is does not report any recent trauma or infection in the breast. Genetic testing was performed and was negative Case was presented at tumor board it was felt the patient was a good candidate to proceed with surgery MRI was performed MRI there was some concern that the extent of the lesion was greater than initially thought up to 5-6 cm in size Oncotype 27 I discussed the case with Dr. Ervin from medical oncology, he states that despite the size of the tumor if the patient wishes to proceed with surgery first that that would be acceptable. I have discussed this with the patient and her and both wish to proceed with surgery prior to neoadjuvant chemotherapy. They understand that the tumor potentially could shrink and have better cosmetic results and despite this they wish to proceed with the surgery. 12-30-21 Alicia underwent a right breast lumpectomy and sentinel node biopsy on [id number]. 3 of 12 lymph nodes were positive. Her posterior margin was felt to be positive for invasive carcinoma focally. All other margins were negative for invasive carcinoma. All margins were negative for DCIS. The lesion was on the pectoral muscle posteriorly so further excision was not recommended. The size of the tumor is 2.8 cm x 2.3 cm. She underwent a metastatic workup secondary to the positive lymph nodes which was negative. Alicia completed chemotherapy; She started adjuvant dose dense AC and completed 4 cycles on . On she started weekly Taxol she completed this on September 27, 2021 Alicia then underwent radiation therapy which he completed on November [id number] She is now taking Verzenio for two years, and the Letrazole for 10 years. Bilateral mammogram on 01-23-22 BIRAD 2. The patient has asymmetry of her breasts related to cancer treatment on the right breast. Makes it hard to find close to fit. It causes her some distress. 01-25-23 At this time the patient is not complaining of any new lumps masses or notches of concern in either breast. She is presently on Verzenio. She is tolerating these without difficulty. Her most recent bilateral mammogram was on [id number] and was benign by. 2. We were going to do a reduction mammoplasty on the left breast however this was held secondary to the Verzenio. Caffeine: 2 cups/day nicotine: none chocolate: occasional hormones: none BCP: stopped 25 years ago, she took them for 15 years Family History: father: colon brother: pancreatic cancer; at 52 Hormonal History: menarche: 17 , breast fed: yes, age at first : 27 menopause: 58 BCP: 15 years stopped 25 years ago hormones: none Surgical history: right wrist surgery form trauma bilateral cataract surgery C-sections times two right lumpectomy and axillary node resetion port placement and removal Medical history: none Social History: HEENT: Negative Alcohol: Occasional Drugs: Negative - Constitutional Constitutional: Reports sweats - EENT Eyes: bilateral as per HPI Ears: deny: decreased hearing, tinnitus Ears, nose, mouth and throat: Denies headache, Denies sore throat - Breasts Breasts: bilateral: as per HPI - Cardiovascular Cardiovascular: Denies chest pain, Denies shortness of breath - Respiratory Respiratory: Denies cough - Gastrointestinal Gastrointestinal: Denies abdominal pain, Denies diarrhea, Denies nausea, Denies vomiting - Genitourinary (Female) Genitourinary: Denies dysuria, Denies hematuria - Menstruation Menstruation: Reports postmenopausal - Musculoskeletal Musculoskeletal: Denies myalgias - Integumentary Comment: eczema intermittent Integumentary: Denies pruritus, Denies rash - Neurological Neurological: Denies numbness, Denies weakness - Psychiatric Psychiatric: Denies anxiety, Denies depression - Endocrine Endocrine: Denies fatigue, Denies weight change - Hematologic/Lymphatic Comment: none - Allergic/Immunologic Allergic/Immunologic: Reports as per HPI Objective - Vital Signs Vital signs: Intake & Output 01/24/23 01/25/23 01/25/23 18:59 06:59 18:59 Weight 74.843 kg - Constitutional General appearance: Present: cooperative - EENT Eyes: Present: EOMI ENT: Present: hearing grossly normal - Neck Neck: Present: normal ROM - Respiratory Respiratory: bilateral: CTA - Cardiovascular Heart sounds: normal: S1, S2 - Integumentary Integumentary Comment(s): 2 dark nevi at her bra line in the back recommend these be removed in the office Integumentary: Present: normal turgor - Musculoskeletal Musculoskeletal: Present: gait normal - Psychiatric Psychiatric: Present: A&O x's 3, appropriate affect, intact judgment & insight - Additional findings Additional findings: Breast Exam: BRA: 36B Inspection: Asymmetry of the breast related to cancer surgery for the right breast, ptosis right 1/2 ptosis left 3 Palpation: Right breast: Multi positional exam postsurgical and radiation changes no dominant masses or nodules of concern Right axilla: No adenopathy of concern Left breast multiposition exam fibrocystic changes no dominant masses or nodules of concern Left axilla: No adenopathy of concern Assessment and Plan Assessment: Impression: Stage II right breast cancer no evidence of recurrence patient status post surgery/chemotherapy/radiation therapy's last is presently on letrazole Asymmetry of the breast related to cancer treatment right breast 2 dark nevi bra line in the back Plan: Bilateral mammogram done January 26, 2024 BIRAD 2 resection of dark nevi bra line in the back in the office Dermatology consult Consider reduction mammoplasty left breast after the patient finishes [facility] November [address] Thompson Follow-up in the office in 6 months Continue to follow with medical oncology Continue to follow with radiation oncology Cc: Dr. Thompson
== END ==
LOC: WWCWWP 14:10
PROVIDERS: ATTEND Surgery
DX: C50.911 Malignant neoplasm of unspecified site of right female breast (principal); N64.89 Other specified disorders of breast; D22.5 Melanocytic nevi of trunk; Y69 Unspecified misadventure during surgical and medical care; Z17.0 Estrogen receptor positive status [ER+]; Z85.3 Personal history of malignant neoplasm of breast; Z92.3 Personal history of irradiation

== ENCOUNTER → 2023-03-15 | Outpatient (CLI) | payer BC ==
[2023-03-15 12:38] VITALS: BP 115/66; PULSE 70; RESP 17; TEMP 98.3
--- NOTE | 2023-03-15 12:53 | P.PN ---
Progress Note - Text Progress Note Date: 03/15/23 Skin nevi of concern mid back The area of concern on the mid back was prepped with Betadine following informed consent. There were 2 skin nevi of concern. One was in the bra line and one was just inferior to this. The inferior lesion was approached initially. One percent lidocaine was used to anesthetize the area of concern. Wide excision was performed. The skin was closed using a 4-0 nylon suture. The lesion was 8 mm in size. Following this the area of the superior lesion was approached. This was cleaned using Betadine. 1% lidocaine was used to anesthetize the area of concern. Wide excision was performed. The skin was closed using 4-0 nylon suture. The lesion was approximately 8 mm in size. The patient will follow up in 2 weeks. She will follow up sooner any questions or concerns CC: DR. Thompson
== END ==
LOC: WWCWWP 11:42
PROVIDERS: ATTEND Surgery
DX: I78.1 Nevus, non-neoplastic (principal)

== ENCOUNTER → 2023-03-30 | Outpatient (CLI) | payer BC ==
--- NOTE | 2023-03-30 13:57 | P.PN ---
Progress Note - Text Progress Note Date: 03/30/23 Alicia is status post [place] 2 [place] [id number]. Both revealed dysplastic junctional nevi with atypia. Both extended to the peripheral tip margins. The areas have healed well. Exam: Incisions clean and dry well-healed Plan: Reexcision of both nevi Patient will follow up in 1 month for reexcision CC: Dr. Thompson
== END ==
LOC: WWCWWP 12:32
PROVIDERS: ATTEND Surgery
DX: D22.5 Melanocytic nevi of trunk (principal); Z98.890 Other specified postprocedural states

== ENCOUNTER → 2023-07-18 | Outpatient (CLI) | payer BC ==
[2023-07-18 08:44] VITALS: BP 102/69; PULSE 51; RESP 15; TEMP 97.9
--- NOTE | 2023-07-18 08:47 | P.PCN ---
Date of Procedure: 07/18/23 Preoperative Diagnosis: Dysplastic nevi 2 sites back both with extension of the dysplasia to the margin tips. Reexcision of these lesions. Following informed consent the area of concern both lesions on the back were prepped. Procedure: re-excision 2 nevi back Both areas were prepped using chlorhexidine 1% lidocaine was used to anesthetize the areas of concern. Wide excision was performed of both areas. The areas were then closed using nylon suture. The upper area was 2.8 cm, the lower area was 2 cm, The patient tolerated the procedure in stable condition Plan: Follow-up in 1 week Postoperative Diagnosis: Same Anesthesia: local Surgeon: Ce Villatoro Pathology: other (re-excision of 2 sites back) Condition: stable Disposition: same day Indications for Procedure: Dysplastic nevi 2 sites with positive margins Operative Findings: Scars upper and lower back Description of Procedure: Both areas of concern were prepped using chlorhexidine. 1% lidocaine was used to anesthetize the areas of concern. Wide excision was performed of both areas. The scalpel blade was changed between areas. The skin was closed using 3-0 nylon suture. The patient tolerated the procedure in stable condition. The upper area was 2.8 cm. The lower area was 2 cm.
== END ==
LOC: WWCWWP 08:00
PROVIDERS: ATTEND Surgery
DX: D22.9 Melanocytic nevi, unspecified (principal)
CPT/HCPCS: 88305

== ENCOUNTER → 2023-08-03 | Outpatient (CLI) | payer BC ==
--- NOTE | 2023-08-03 08:40 | P.BCPO ---
Progress Note - Text 08-03-23 Preoperative Diagnosis: Dysplastic nevi 2 sites back both with extension of the dysplasia to the margin tips. Reexcision of these lesions was performed on 07-18-23. No residual melanocytic nevis noted. Patient tolerated resection of these without difficulty. Impression: Complete resection of dysplastic nevi 2 sites on back Plan: Follow-up bilateral mammogram in January follow up sooner any concerns CC: Dr. Thompson
[2023-08-03 09:39] VITALS: BP 108/71; PULSE 67; RESP 17; TEMP 98.3
== END ==
LOC: WWCWWP 07:49
PROVIDERS: ATTEND Surgery
DX: R92.8 Other abnormal and inconclusive findings on diagnostic imaging of breast (principal); D23.5 Other benign neoplasm of skin of trunk; R13.19 Other dysphagia

== ENCOUNTER → 2024-01-28 | Outpatient (CLI) | payer BC ==
--- NOTE | 2024-01-29 09:52 | MM ---
Reason for Exam: Screening (asymptomatic). Last screening mammogram was performed 12 month(s) ago. Patient History: Menarche at age 15. First Full-Term at age 27. Postmenopausal. Breast cancer, right, age 60. Previous chest radiation therapy at age 60. Previous chemotherapy at age 60. 03/22/2021, Lumpectomy on the Right side. 03/22/2021, Malignant Core Biopsy on the right side. 03/09/2021, Benign Core Biopsy on the right side. 05/2021, Chemotherapy. 09/2021, Radiation Therapy on the right side. Paternal cousin had breast cancer at or over age 50. Paternal aunt had breast cancer. Prior Study Comparison: 11/09/2010 Left Diagnostic Mammogram, [facility]. 01/23/2022 Bilateral MG 3D diag mammo w/cad KARAN, [facility]. 01/25/2023 Bilateral MG 3D diag mammo w/cad KARAN, [facility]. Tissue Density: The breasts are heterogeneously dense, which may obscure small masses. Findings: Analyzed By CAD. There is no suspicious group of microcalcifications or new suspicious mass in either breast. Overall Assessment: Benign, BI-RAD 2 Management: Screening Mammogram of both breasts in 1 year. . Patient should continue monthly self-breast exams. A clinical breast exam by your physician is recommended on an annual basis. This exam should not preclude additional follow-up of suspicious palpable abnormalities. Note on Germaine scores and lifetime risk: 1. A Germaine score greater than 3% is considered moderate risk. If this is the case, consider specialist referral to assess eligibility for a risk reducing agent. 2. If overall lifetime risk for the development of breast cancer is 20% or higher, the patient may qualify for future screening with alternating mammogram and breast MRI. [facility], , 01/29/2024 9:48 AM. Electronically signed and approved by: Holger Hernández M.D. Radiologis
== END | disposition home or self-care (01) ==
LOC: RADMAMWWP 11:00
PROVIDERS: ATTEND Surgery
CPT/HCPCS: 77063; 77067